=== PATIENT | female | born 1935 | race Native Hawaiian/Other Pacific Islander ===

== ENCOUNTER 2017-08-14 14:30 | Inpatient (IN) | payer OTHER, MEDICARE ==
[2017-08-14 14:30] VITALS: BMI 21.4
[2017-08-14] MEDS ORDERED: Sodium Chloride 0.9% 1,000 ML IV STA (14:58)
[2017-08-14 16:05] LABS: ALB/GLOB RATIO 0.9 (1.0-2.1); ALBUMIN 3.7 g/dL (3.5-5.0); ALT/SGPT 21 U/L (9-52); AST/SGOT 25 U/L (14-36); BLOOD UREA NITROGEN 11 mg/dl (7-17); CALCIUM 8.9 mg/dL (8.4-10.2); GFR AFRICAN-AMERICAN > 60; GFR NON-AFRICAN AMERICAN > 60; MAGNESIUM 1.9 MG/DL (1.6-2.3)
[2017-08-14 16:15] LABS: BASO % 0.6 % (0.0-2.0); EOS # 0.2 K/uL (0.0-0.7); HEMOGLOBIN 9.8 g/dL (12.0-16.0); LYMPH # 0.8 K/uL (1.0-4.3); LYMPH % 10.5 % (20.0-40.0); MEAN CELL VOLUME 81.1 fl (81.0-99.0); MEAN CORPUSCULAR HEMOGLOBIN 26.7 pg (27.0-31.0); MEAN CORPUSCULAR HGB CONC 32.9 g/dL (33.0-37.0); MEAN PLATELET VOLUME 7.9 fl (7.2-11.7); MONO # 1.1 K/uL (0.0-0.8); NEUT # 5.6 K/uL (1.8-7.0); NEUT % 72.9 % (50.0-75.0); NRBC % 0.2 % (0.0-0.0); RBC 3.65 Mil/uL (3.80-5.20); RED CELL DISTRIBUTION WIDTH 15.3 % (11.5-14.5); WHITE BLOOD COUNT 7.6 K/uL (4.8-10.8)
[2017-08-14] MEDS ORDERED: Potassium Chloride 20 mEq ER Tab PO ONE ×4 (16:32→22:25)
--- NOTE | 2017-08-14 16:44 | ED PDOC ---
HPI: Seizure Time Seen by Provider: 08/14/17 14:40 Chief Complaint (Nursing): Seizure Chief Complaint (Provider): seizure History Per: Patient, Family, Other (Dr Richardson) Recent Seizure Activity Began: Just Before Arrival Number Of Seizures: One Quality Of Seizure: Generalized Post-ictal Period: Yes Severity: Severe Additional History Per: Prior Records Additional Complaint(s): 82yo female arrives via EMS from Dr Richardson's office where she reportedly had a seizure in the waiting area. Dr Richardson confirms witnessed generalized tonic clonic seizure with prolonged post ictal period. Per elementary ell teacher also had a seizure last week, although both patient and elementary ell teacher are poor historians. Reportedly has been having worsening tremors lately, no reported falls, illness/fever, vomiting or diarrhea. 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 In ED she is awake, appears mildly confused and denies complaints. Past Medical History Reviewed: Historical Data, Nursing Documentation, Vital Signs Vital Signs: Last Vital Signs Temp 99.0 F 08/14/17 14:34 Pulse 71 08/14/17 14:34 Resp 16 08/14/17 14:34 BP 150/61 08/14/17 14:34 Pulse Ox 99 08/14/17 14:34 - Medical History PMH: Asthma, Dementia, Parkinson's Disease - Surgical History Surgical History: Appendectomy - Family History Family History: States: Unknown Family Hx - Living Arrangements Living Arrangements: With Family - Social History Current smoker - smoking cessation education provided: No Alcohol: None - Immunization History Hx Tetanus Toxoid Vaccination: No Hx Influenza Vaccination: No Hx Pneumococcal Vaccination: No - Home Medications Home Medications: Ambulatory Orders Medication Instructions Recorded Carbidopa/Levodopa 25/100 mg 1 tab PO DAILY 03/01/16 [Sinemet] Donepezil [Aricept] 10 mg PO BID 03/01/16 Pramipexole Di-HCl [Mirapex ER] 0.375 mg PO DAILY 03/01/16 Pramipexole Di-HCl [Pramipexole 0.25 mg PO BID 03/01/16 Dihydrochloride] QUEtiapine [Seroquel] 25 mg PO HS 03/01/16 Potassium Chloride [K-Dur 20 mEq 20 meq PO DAILY #10 tab 07/21/17 ER Tab] traMADol/Acetaminophen [Ultracet 1 tab PO Q4 PRN #30 tab 07/21/17 325 MG-37.5 MG] - Allergies Allergies/Adverse Reactions: Allergies Allergy/AdvReac Type Severity Reaction Status Date / Time No Known Allergies Allergy Verified 07/21/17 12:08 Review of Systems Review Of Systems: ROS cannot be obtained secondary to pt's inabilty to answer questions. (poor historian) Constitutional: Positive for: Chills Respiratory: Negative for: Cough Gastrointestinal: Negative for: Vomiting Neurological: Positive for: Seizures, Altered Mental Status Physical Exam - Reviewed Nursing Documentation Reviewed: Yes Vital Signs Reviewed: Yes - Physical Exam Appears: Positive for: Non-toxic (elderly appearing, communicates simply, frail , parkinsonian) Head Exam: Positive for: ATRAUMATIC, NORMAL INSPECTION, NORMOCEPHALIC Skin: Positive for: Normal Color, Warm, DRY Eye Exam: Positive for: EOMI, Normal appearance, PERRL ENT: Positive for: Other (dry appearing mucosa). Negative for: Tonsillar Exudate Neck: Positive for: Normal, Painless ROM Cardiovascular/Chest: Positive for: Regular Rate, Rhythm Respiratory: Positive for: Normal Breath Sounds. Negative for: Respiratory Distress Gastrointestinal/Abdominal: Positive for: Bowel Sounds, Soft. Negative for: Tenderness Back: Positive for: Normal Inspection Extremity: Positive for: Normal ROM, Pedal Edema, Other (cool extremities) Neurologic/Psych: Positive for: Alert, floater operator II-XII (intact), Other (intention tremor, rigidity, parkinsonian, strength symmetric) - Laboratory Results Result Diagrams: 08/14/17 15:48 08/14/17 15:48 - ECG ECG: Positive for: Interpreted By Me ECG Rhythm: Positive for: Sinus Rhythm, ST/T Changes, Nonspecific Changes Rate: 75 O2 Sat by Pulse Oximetry: 99 Pulse Ox Interpretation: Normal - Radiology X-Ray: Interpreted by Ak X-Ray Interpretation: No Acute Disease Medical Decision Making Medical Decision Making: workup for ? new onset seizure initiated CT brain, EKG, labs, accucheck, cardiac monitoring
[2017-08-14] MEDS ORDERED: levETIRAcetam 500 MG in Sodium Chloride 0.9% 100 ML IVPB ONE (16:51)
[2017-08-14 17:03] LABS: SQUAMOUS EPITHIAL 1 /hpf (0-5); URINE AMORPHOUS SEDIMENT RARE /ul (<OCC); URINE BACTERIA RARE (<OCC); URINE BILIRUBIN NEGATIVE (NEGATIVE); URINE BLOOD SMALL (NEGATIVE); URINE CLARITY CLOUDY (Clear); URINE COLOR AMBER (YELLOW); URINE GLUCOSE (UA) NEG (Normal); URINE HYALINE CAST 0-2 /hpf (0-2); URINE LEUKOCYTE ESTERASE NEG Leu/uL (Negative); URINE NITRATE NEGATIVE (NEGATIVE); URINE PROTEIN 30 mg/dL (NEGATIVE)
--- NOTE | 2017-08-14 17:03 | CT ---
PROCEDURE: CT HEAD WITHOUT CONTRAST. HISTORY: r/o ICH COMPARISON: None available. TECHNIQUE: Axial computed tomography images were obtained through the head/brain without intravenous contrast. Radiation dose: Total exam DLP = 1877.87 mGy-cm. This CT exam was performed using one or more of the following dose reduction techniques: Automated exposure control, adjustment of the mA and/or kV according to patient size, and/or use of iterative reconstruction technique. FINDINGS: HEMORRHAGE: No intracranial hemorrhage. BRAIN: Examination limited due to motion artifact. No intracranial mass. No evidence of acute infarct. Mild to moderate diffuse age-appropriate cerebral atrophy. Mild periventricular white matter lucency consistent with chronic microvascular ischemic change. VENTRICLES: Unremarkable. No hydrocephalus. CALVARIUM: Unremarkable. PARANASAL SINUSES: Unremarkable as visualized. No significant inflammatory changes. MASTOID AIR CELLS: Unremarkable as visualized. No inflammatory changes. OTHER FINDINGS: None. IMPRESSION: Age-appropriate involutional change. No evidence of intracranial hemorrhage.
--- NOTE | 2017-08-14 22:06 | RAD ---
EXAM: XR Right Knee, 1 or 2 views CLINICAL HISTORY: 82 years old, female; Injury or trauma; Fall; Initial encounter; Blunt trauma; Knee; Right TECHNIQUE: Frontal and/or lateral views of the right knee. COMPARISON: No relevant prior studies available. FINDINGS: Bones/joints: No acute fracture. No dislocation. No significant joint effusion. Soft tissues: Unremarkable. IMPRESSION: 1. No fracture. 2. If pain persists, suggest MRI to evaluate for occult fracture/internal arrangement.
--- NOTE | 2017-08-14 22:06 | RAD ---
EXAM: XR Pelvis, 1 or 2 Views CLINICAL HISTORY: 82 years old, female; Injury or trauma; Fall; Initial encounter; Blunt trauma (contusions or hematomas); Right; Hip TECHNIQUE: Frontal view of the pelvis. COMPARISON: No relevant prior studies available. FINDINGS: Limitations: Suboptimal evaluation of right femoral neck due to external rotation of hip. Bones/joints: No acute fracture. Degenerative changes of lower lumbar spine. No dislocation. Osteopenia. Soft tissues: Unremarkable. Other findings: Ovoid calcification projected over right hemipelvis. IMPRESSION: 1. No fracture. 2. If hip pain persists, consider MRI to exclude occult fracture/internal derangement. 3. Incidental/non-acute findings are described above.
[2017-08-14] MEDS: Dextrose 5%/Lactated Ringer's 1,000 ML IV SCH (23:54)
[2017-08-15 07:43] LABS: HEMOGLOBIN 9.7 g/dL (12.0-16.0); MEAN CELL VOLUME 82.9 fl (81.0-99.0); MEAN CORPUSCULAR HEMOGLOBIN 26.6 pg (27.0-31.0); MEAN CORPUSCULAR HGB CONC 32.2 g/dL (33.0-37.0); RBC 3.64 Mil/uL (3.80-5.20); RED CELL DISTRIBUTION WIDTH 16.1 % (11.5-14.5); WHITE BLOOD COUNT 5.8 K/uL (4.8-10.8)
[2017-08-15 08:05] LABS: ALB/GLOB RATIO 0.9 (1.0-2.1); ALBUMIN 3.3 g/dL (3.5-5.0); ALT/SGPT 25 U/L (9-52); AST/SGOT 23 U/L (14-36); BLOOD UREA NITROGEN 7 mg/dl (7-17); CALCIUM 8.6 mg/dL (8.4-10.2); GFR AFRICAN-AMERICAN > 60; GFR NON-AFRICAN AMERICAN > 60
[2017-08-15] MEDS: Dextrose 5%/Lactated Ringer's 1,000 ML IV SCH ×2 (08:36→19:45)
--- NOTE | 2017-08-15 08:49 | RAD ---
HISTORY: AMS COMPARISON: No prior. FINDINGS: LUNGS: No acute infiltrate is appreciated bilaterally. Left apical fibrosis is identified with none at the right. Skin folds are identified at inferior right lung zone laterally. PLEURA: No significant pleural effusion identified, no pneumothorax apparent. CARDIOVASCULAR: Normal. OSSEOUS STRUCTURES: No significant abnormalities. VISUALIZED UPPER ABDOMEN: Normal. OTHER FINDINGS: None. IMPRESSION: No acute infiltrate or pleural effusion bilaterally. No pulmonary vascular derangement. Left apical fibrosis.
[2017-08-15] MEDS ORDERED: Pneumococcal 23-Valent Vaccine IM ONE (09:00)
[2017-08-15] MEDS ORDERED: Influenza Vaccine 18yr & older 0.5 ML/45 MCG SYR IM ONE (09:50)
--- NOTE | 2017-08-15 17:46 | CP.PCM.CON ---
History of Present Illness - History of Present Illness History of Present Illness: Mrs. Watson is an 82-year-old woman with a past medical history of Parkinsons and dementia, who has had several episodes of witnessed seizures in the past according to family. The most recent one was yesterday. She was started on Keppra and has been somewhat lethargic, but has not had any seizures since. Review of Systems - Review of Systems All systems: reviewed and no additional remarkable complaints except Past Patient History - Past Medical History & Family History Past Medical History?: Yes - Past Social History Smoking Status: Never Smoked - CARDIAC Hx Cardiac Disorders: Yes Hx Angina: Yes - PULMONARY Hx Asthma: Yes - NEUROLOGICAL Hx Dementia: Yes Hx Parkinson's Disease: Yes - MUSCULOSKELETAL/RHEUMATOLOGICAL Hx Falls: Yes - PSYCHIATRIC Hx Substance Use: No - SURGICAL HISTORY Hx Appendectomy: Yes - ANESTHESIA Hx Anesthesia: Yes Hx Anesthesia Reactions: No Meds Allergies/Adverse Reactions: Allergies Allergy/AdvReac Type Severity Reaction Status Date / Time No Known Allergies Allergy Verified 07/21/17 12:08 - Medications Medications: Current Medications Carbidopa/Levodopa (Sinemet) 3 tab PO TID [facility] Last Admin: 08/15/17 16:07 Dose: 3 tab Donepezil HCl (Aricept) 10 mg PO [facility] Last Admin: 08/15/17 01:07 Dose: Not Given Dextrose/Lactated Ringer's (Dextrose 5%/Lactated Ringer's) 1,000 mls @ 100 mls/ hr IV .Q10H [facility] Stop: 08/15/17 23:23 Last Admin: 08/15/17 08:36 Dose: 100 mls/hr Levetiracetam (Keppra) 500 mg PO BID [facility] Last Admin: 08/15/17 16:07 Dose: 500 mg Lorazepam (Ativan) 1 mg IVP QID PRN PRN Reason: Seizure activity Pramipexole Dihydrochloride (Mirapex) 0.25 mg PO BID [facility] Last Admin: 08/15/17 16:07 Dose: 0.25 mg Quetiapine Fumarate (Seroquel) 50 mg PO [facility] Last Admin: 08/15/17 01:07 Dose: Not Given Physical Exam - Constitutional Appears: Well - Head Exam Head Exam: ATRAUMATIC, NORMAL INSPECTION, NORMOCEPHALIC - Eye Exam Eye Exam: EOMI, Normal appearance, PERRL - Cardiovascular Exam Cardiovascular Exam: REGULAR RHYTHM, +S1, +S2 - Rectal Exam Rectal Exam: Deferred - Neurological Exam Neurological exam: Abnormal Gait, Altered, CN II-XII Intact Additional comments: Oriented to person and place only. Does not know year or who the president of the [employer] is. She has generalized bradykinesia and bradyphrenia. Moves all extremities, non-focal, sensation is intact, reflexes are normal, plantar responses are downgoing. Results - Vital Signs Recent Vital Signs: Last Vital Signs Temp 98.2 F 08/15/17 16:15 Pulse 68 08/15/17 16:15 Resp 16 08/15/17 16:15 BP 126/66 08/15/17 16:15 Pulse Ox 99 08/15/17 16:15 - Labs Result Diagrams: 08/15/17 05:55 08/15/17 05:55 Labs: Laboratory Results - last 24 hr 08/15/17 08/15/17 05:55 05:55 WBC 5.8 RBC 3.64 L Hgb 9.7 L Hct 30.1 L MCV 82.9 MCH 26.6 L MCHC 32.2 L RDW 16.1 H Plt Count 248 Sodium 140 Potassium 3.1 L Chloride 98 Carbon Dioxide 34 H Anion Gap 11 BUN 7 Creatinine 0.5 L Est GFR ( Amer) > 60 Est GFR (Non-Af Amer) > 60 Random Glucose 96 Calcium 8.6 Total Bilirubin 1.3 AST 23 ALT 25 Alkaline Phosphatase 215 H Total Protein 7.2 Albumin 3.3 L Globulin 3.9 Albumin/Globulin Ratio 0.9 L TSH 3rd Generation 1.61 Assessment & Plan (1) Epilepsy Assessment and Plan: She has had multiple seizures by history. This may be due to Seroquel or other medications lowering the seizure threshold, or may be due to underlying cerebral /cortical pathology due to dementia/PD. I recommend the following. 1. MRI of the brain without contrast 2. EEG awake and drowsy for 1 hour 3. Continue Keppra 500 mg BID 4. PT/OT eval 5. Continue home meds Thank you. Status: Acute Priority: High
--- NOTE | 2017-08-15 18:29 | CP.PCM.HP ---
History of Present Illness - History of Present Illness History of Present Illness: This is an 82 y/o female admitted for generalized tonic clonic seizure which happened while in the waiting room in my office. She apparently had previous witnessed seizure in the past according to . She has a hx of dementia and Parkinsons. She used to follow up with another MD in [facility]. No other significant medical issues. Present on Admission - Present on Admission Any Indicators Present on Admission: No History of DVT/PE: No History of Uncontrolled Diabetes: No Urinary Catheter: No Decubitus Ulcer Present: No Review of Systems - Neurological Neurological: Confusion, Convulsions Past Patient History - Past Medical History & Family History Past Medical History?: Yes - Past Social History Smoking Status: Never Smoked - CARDIAC Hx Cardiac Disorders: Yes Hx Angina: Yes - PULMONARY Hx Asthma: Yes - NEUROLOGICAL Hx Dementia: Yes Hx Parkinson's Disease: Yes - MUSCULOSKELETAL/RHEUMATOLOGICAL Hx Falls: Yes - PSYCHIATRIC Hx Substance Use: No - SURGICAL HISTORY Hx Appendectomy: Yes - ANESTHESIA Hx Anesthesia: Yes Hx Anesthesia Reactions: No Meds Allergies/Adverse Reactions: Allergies Allergy/AdvReac Type Severity Reaction Status Date / Time No Known Allergies Allergy Verified 07/21/17 12:08 Physical Exam - Head Exam Head Exam: NORMAL INSPECTION - Eye Exam Eye Exam: Normal appearance - Respiratory Exam Respiratory Exam: Clear to Auscultation Bilateral - Cardiovascular Exam Cardiovascular Exam: REGULAR RHYTHM - GI/Abdominal Exam GI & Abdominal Exam: Normal Bowel Sounds - Neurological Exam Neurological exam: Altered, CN II-XII Intact - Psychiatric Exam Psychiatric exam: Flat Affect Results - Vital Signs Recent Vital Signs: Last Vital Signs Temp 98.2 F 08/15/17 16:15 Pulse 68 08/15/17 16:15 Resp 16 08/15/17 16:15 BP 126/66 08/15/17 16:15 Pulse Ox 99 08/15/17 16:15 - Labs Result Diagrams: 08/15/17 05:55 08/15/17 05:55 Labs: Laboratory Results - last 24 hr 08/15/17 08/15/17 05:55 05:55 WBC 5.8 RBC 3.64 L Hgb 9.7 L Hct 30.1 L MCV 82.9 MCH 26.6 L MCHC 32.2 L RDW 16.1 H Plt Count 248 Sodium 140 Potassium 3.1 L Chloride 98 Carbon Dioxide 34 H Anion Gap 11 BUN 7 Creatinine 0.5 L Est GFR ( Amer) > 60 Est GFR (Non-Af Amer) > 60 Random Glucose 96 Calcium 8.6 Total Bilirubin 1.3 AST 23 ALT 25 Alkaline Phosphatase 215 H Total Protein 7.2 Albumin 3.3 L Globulin 3.9 Albumin/Globulin Ratio 0.9 L TSH 3rd Generation 1.61 Assessment & Plan (1) Seizure disorder Status: Acute (2) Dementia Status: Acute (3) Parkinson disease Status: Acute - Assessment and Plan (Free Text) Plan: admit to telemetry Neuro eval ativan resume home meds oxygen MRI of the brain karel Yo
--- NOTE | 2017-08-15 19:36 | CARD ---
APPROVED REPORT EKG Measurement Heart [id number] <Conclusion> Normal sinus rhythm Minimal voltage criteria for LVH, may be normal variant Nonspecific ST & T wave abnormality, Abnormal ECG
[2017-08-16] MEDS ORDERED: levETIRAcetam 500 MG in Sodium Chloride 0.9% 100 ML IVPB ONE (11:21)
--- NOTE | 2017-08-16 11:21 | CP.PCM.PN ---
Subjective - Date & Time of Evaluation Date of Evaluation: 08/16/17 Time of Evaluation: 11:19 - Subjective Subjective: Ms. Watson was seen and examined at the bedside. She is alert to her immediate family only but not to the president. She is unable to state time and place. The patient's is at the bedside when the patient has a clonic tonic seizures for less than 2 minutes. She did not have any tongue biting or incontinence. The vital signs post seizure episode is 127/66. HR 112, SPO2-97% with oxygen at 2 LPM/NC. Ativan 1 mg IVP and a loading dose of keppra 500 mg IVPB for one dose was given. Objective - Vital Signs/Intake and Output Vital Signs (last 24 hours): Temp Pulse Resp BP Pulse Ox 98.7 F 89 20 126/64 97 08/16/17 08:10 08/16/17 08:10 08/16/17 08:10 08/16/17 08:10 08/16/17 08:10 - Medications Medications: Current Medications Carbidopa/Levodopa (Sinemet) 3 tab PO TID [facility] Last Admin: 08/16/17 08:57 Dose: 3 tab Donepezil HCl (Aricept) 10 mg PO [facility] Last Admin: 08/15/17 21:49 Dose: 10 mg Levetiracetam (Keppra) 500 mg PO BID [facility] Last Admin: 08/16/17 08:57 Dose: 500 mg Lorazepam (Ativan) 1 mg IVP QID PRN PRN Reason: Seizure activity Pramipexole Dihydrochloride (Mirapex) 0.25 mg PO BID [facility] Last Admin: 08/16/17 08:57 Dose: 0.25 mg Quetiapine Fumarate (Seroquel) 50 mg PO [facility] Last Admin: 08/15/17 21:49 Dose: 50 mg - Labs Labs: 08/15/17 05:55 08/15/17 05:55 - Constitutional Appears: No Acute Distress, Confused - Head Exam Head Exam: NORMAL INSPECTION - Extremities Exam Additional comments: positive tenderness in her right knee (s/p fall), with ecchymosis noted in her right leg. - Neurological Exam Neurological Exam: Awake Neuro motor strength exam: Left Upper Extremity: 3, Right Upper Extremity: 3, Left Lower Extremity: 3, Right Lower Extremity: 3 Additional comments: Does not know year or who the president of the [employer] is, only knows her . She has generalized bradykinesia and bradyphrenia. Moves all extremities, non- focal, sensation is intact, reflexes are normal,prior to seizure activity Assessment and Plan (1) Epilepsy Assessment & Plan: Case discussed with Dr. Tejada, ativan 1 mg IVP for one dose and additional keppra 500 mg IVPB for one dose. Follow up MRI of the brain and EEG. Continue all other medical regimen including seizure precautions. Status: Acute
--- NOTE | 2017-08-16 14:10 | CP.PCM.PN ---
Subjective - Date & Time of Evaluation Date of Evaluation: 08/16/17 Time of Evaluation: 14:09 - Subjective Subjective: Patient had a short episode of seizure today Was given iV Keppra Has no chest pain or SOB Objective - Vital Signs/Intake and Output Vital Signs (last 24 hours): Temp Pulse Resp BP Pulse Ox 98.0 F 90 20 127/66 100 08/16/17 13:02 08/16/17 13:02 08/16/17 13:02 08/16/17 13:02 08/16/17 13:02 - Medications Medications: Current Medications Carbidopa/Levodopa (Sinemet) 3 tab PO TID [facility] Last Admin: 08/16/17 12:44 Dose: 3 tab Donepezil HCl (Aricept) 10 mg PO [facility] Last Admin: 08/15/17 21:49 Dose: 10 mg Levetiracetam (Keppra) 500 mg PO BID [facility] Last Admin: 08/16/17 08:57 Dose: 500 mg Lorazepam (Ativan) 1 mg IVP QID PRN PRN Reason: Seizure activity Pramipexole Dihydrochloride (Mirapex) 0.25 mg PO BID [facility] Last Admin: 08/16/17 08:57 Dose: 0.25 mg Quetiapine Fumarate (Seroquel) 50 mg PO [facility] Last Admin: 08/15/17 21:49 Dose: 50 mg - Labs Labs: 08/15/17 05:55 08/15/17 05:55 - Head Exam Head Exam: NORMAL INSPECTION - Eye Exam Eye Exam: Normal appearance - ENT Exam ENT Exam: Mucous Membranes Moist - Respiratory Exam Respiratory Exam: NORMAL BREATHING PATTERN - Cardiovascular Exam Cardiovascular Exam: REGULAR RHYTHM - GI/Abdominal Exam GI & Abdominal Exam: Normal Bowel Sounds - Neurological Exam Neurological Exam: Awake, Oriented x3 - Psychiatric Exam Psychiatric exam: Normal Mood Assessment and Plan (1) Seizure disorder Status: Acute (2) Dementia Status: Acute (3) Parkinson disease Status: Acute - Assessment and Plan (Free Text) Plan: Continue meds Cont tx Cont PT cont Keppra PT in am discharge plan after PT.
[2017-08-16] MEDS ORDERED: Lidocaine 5% Patch TD SCH (14:15)
--- NOTE | 2017-08-17 11:14 | CP.PCM.PN ---
Subjective - Date & Time of Evaluation Date of Evaluation: 08/17/17 Time of Evaluation: 11:11 - Subjective Subjective: Ms. Watson was seen and examined at the bedside. She is alert with episode of forgetfulness. She is able to answer some questions appropriately. She denies any headache, dizziness, lightheadedness, blurred vision. She is able to follow simple commands such as lifting her bilateral upper and lower extremities. There was no untoward events overnight. Objective - Vital Signs/Intake and Output Vital Signs (last 24 hours): Temp Pulse Resp BP Pulse Ox 98.4 F 75 18 137/72 100 08/17/17 08:16 08/17/17 08:16 08/17/17 08:16 08/17/17 08:16 08/17/17 08:16 - Medications Medications: Current Medications Carbidopa/Levodopa (Sinemet) 3 tab PO TID [facility] Last Admin: 08/16/17 17:19 Dose: 3 tab Donepezil HCl (Aricept) 10 mg PO [facility] Last Admin: 08/16/17 21:40 Dose: 10 mg Levetiracetam (Keppra) 500 mg PO BID [facility] Last Admin: 08/16/17 17:20 Dose: 500 mg Lidocaine (Lidoderm) 1 ea TD DAILY [facility] Lorazepam (Ativan) 1 mg IVP QID PRN PRN Reason: Seizure activity Megestrol Acetate (Megace) 20 mg PO DAILY [facility] Pramipexole Dihydrochloride (Mirapex) 0.25 mg PO BID [facility] Last Admin: 08/16/17 17:20 Dose: 0.25 mg Quetiapine Fumarate (Seroquel) 50 mg PO [facility] Last Admin: 08/16/17 21:40 Dose: 50 mg - Labs Labs: 08/15/17 05:55 08/15/17 05:55 - Constitutional Appears: No Acute Distress - Head Exam Head Exam: NORMAL INSPECTION - Neurological Exam Neurological Exam: Alert, Awake Neuro motor strength exam: Left Upper Extremity: 4, Right Upper Extremity: 4, Left Lower Extremity: 4, Right Lower Extremity: 4 Additional comments: She is able to answer questions approriately and follow simple commands. Sensation remains intact. Assessment and Plan (1) Epilepsy Assessment & Plan: Case discussed with Dr. Mehta, continue all current medical regimen including AED' s. Pending MRI of the brain and EEG to further evaluate the seizure. Status: Acute
[2017-08-17] MEDS: Lidocaine 5% Patch TD SCH (12:56)
[2017-08-17 12:58] LABS: BLOOD UREA NITROGEN 4 mg/dl (7-17); CALCIUM 8.4 mg/dL (8.4-10.2); GFR AFRICAN-AMERICAN > 60; GFR NON-AFRICAN AMERICAN > 60
[2017-08-17] MEDS ORDERED: Potassium Chloride 20 mEq/15 ml LIQ UD PO ONE (13:29)
[2017-08-18 06:09] LABS: HEMOGLOBIN 8.3 g/dL (12.0-16.0); MEAN CELL VOLUME 81.6 fl (81.0-99.0); MEAN CORPUSCULAR HEMOGLOBIN 26.8 pg (27.0-31.0); MEAN CORPUSCULAR HGB CONC 32.8 g/dL (33.0-37.0); RBC 3.09 Mil/uL (3.80-5.20); WHITE BLOOD COUNT 7.5 K/uL (4.8-10.8)
[2017-08-18 06:15] LABS: BLOOD UREA NITROGEN 6 mg/dl (7-17); CALCIUM 8.4 mg/dL (8.4-10.2); GFR AFRICAN-AMERICAN > 60; GFR NON-AFRICAN AMERICAN > 60
[2017-08-18] MEDS: Lidocaine 5% Patch TD SCH (08:56)
[2017-08-18] MEDS: Potassium Chloride 20 mEq/15 ml LIQ UD PO SCH (09:14)
[2017-08-18] MEDS ORDERED: Potassium Chloride 20 mEq ER Tab PO ONE (09:57)
[2017-08-18 14:37] LABS: IRON 42 ug/dL (37-170)
[2017-08-18 14:47] LABS: TOTAL IRON BINDING CAPACITY 204 ug/dL (250-450)
[2017-08-18 15:04] LABS: % IRON SATURATION 21 % (20-55)
--- NOTE | 2017-08-18 16:00 | CP.PCM.PN ---
Subjective - Date & Time of Evaluation Date of Evaluation: 08/18/17 Time of Evaluation: 15:57 - Subjective Subjective: has no complaints today. No headache, no seizures, no other complaints. EEG completed and normal. Report dictated and pending. Awaiting MRi Brain today. On exam: neurological exam unchanged. Objective - Vital Signs/Intake and Output Vital Signs (last 24 hours): Temp Pulse Resp BP Pulse Ox 97.7 F 68 20 124/94 H 100 08/18/17 12:00 08/18/17 12:00 08/18/17 12:00 08/18/17 12:00 08/18/17 12:00 - Medications Medications: Current Medications Carbidopa/Levodopa (Sinemet) 3 tab PO TID [facility] Last Admin: 08/18/17 14:14 Dose: 3 tab Donepezil HCl (Aricept) 10 mg PO HS [facility] Last Admin: 08/17/17 22:17 Dose: 10 mg Levetiracetam (Keppra) 500 mg PO BID [facility] Last Admin: 08/18/17 08:59 Dose: 500 mg Lidocaine (Lidoderm) 1 ea TD DAILY [facility] Last Admin: 08/18/17 08:56 Dose: 1 ea Lorazepam (Ativan) 1 mg IVP QID PRN PRN Reason: Seizure activity Megestrol Acetate (Megace) 20 mg PO DAILY [facility] Last Admin: 08/18/17 08:59 Dose: 20 mg Potassium Chloride (Potassium Chloride Oral Soln) 20 meq PO DAILY [facility] Last Admin: 08/18/17 09:14 Dose: 20 meq Pramipexole Dihydrochloride (Mirapex) 0.25 mg PO BID [facility] Last Admin: 08/18/17 09:01 Dose: 0.25 mg Quetiapine Fumarate (Seroquel) 50 mg PO [facility] Last Admin: 08/17/17 22:17 Dose: 50 mg - Labs Labs: 08/18/17 04:25 08/18/17 04:25 Assessment and Plan - Assessment and Plan (Free Text) Assessment: 82 yr old male with new onset seizure, etiology as of yet undefined. Neuroimaging pending and on keppra. Tolerating well. Plan: 1. Continue keppra 500 mg bid 2. MRI Brain pending.
--- NOTE | 2017-08-18 16:19 | CP.PCM.PN ---
Subjective - Date & Time of Evaluation Date of Evaluation: 08/18/17 Time of Evaluation: 09:45 - Subjective Subjective: Patient seen and examined at bedside with attending-Dr. Richardson. Awake, in no acute distress. Minimal verbal response to questions as is her baseline. Objective - Vital Signs/Intake and Output Vital Signs (last 24 hours): Temp Pulse Resp BP Pulse Ox 97.7 F 68 20 124/94 H 100 08/18/17 12:00 08/18/17 12:00 08/18/17 12:00 08/18/17 12:00 08/18/17 12:00 - Medications Medications: Current Medications Carbidopa/Levodopa (Sinemet) 3 tab PO TID [facility] Last Admin: 08/18/17 14:14 Dose: 3 tab Donepezil HCl (Aricept) 10 mg PO [facility] Last Admin: 08/17/17 22:17 Dose: 10 mg Levetiracetam (Keppra) 500 mg PO BID [facility] Last Admin: 08/18/17 08:59 Dose: 500 mg Lidocaine (Lidoderm) 1 ea TD DAILY [facility] Last Admin: 08/18/17 08:56 Dose: 1 ea Lorazepam (Ativan) 1 mg IVP QID PRN PRN Reason: Seizure activity Megestrol Acetate (Megace) 20 mg PO DAILY [facility] Last Admin: 08/18/17 08:59 Dose: 20 mg Potassium Chloride (Potassium Chloride Oral Soln) 20 meq PO DAILY [facility] Last Admin: 08/18/17 09:14 Dose: 20 meq Pramipexole Dihydrochloride (Mirapex) 0.25 mg PO BID [facility] Last Admin: 08/18/17 09:01 Dose: 0.25 mg Quetiapine Fumarate (Seroquel) 50 mg PO [facility] Last Admin: 08/17/17 22:17 Dose: 50 mg - Labs Labs: 08/18/17 04:25 08/18/17 04:25 - Constitutional Appears: No Acute Distress - Head Exam Head Exam: ATRAUMATIC, NORMOCEPHALIC - Eye Exam Eye Exam: EOMI - ENT Exam ENT Exam: Mucous Membranes Moist - Neck Exam Neck Exam: absent: Lymphadenopathy - Respiratory Exam Respiratory Exam: Clear to Ausculation Bilateral, NORMAL BREATHING PATTERN - Cardiovascular Exam Cardiovascular Exam: REGULAR RHYTHM, +S1, +S2 - GI/Abdominal Exam GI & Abdominal Exam: Soft, Normal Bowel Sounds - Extremities Exam Extremities Exam: absent: Calf Tenderness, Pedal Edema - Neurological Exam Neurological Exam: Awake - Psychiatric Exam Psychiatric exam: Flat Affect (/) - Skin Skin Exam: Dry, Normal Color, Warm Assessment and Plan - Assessment and Plan (Free Text) Assessment: 82 yr old admitted for for new onset seizure. Patient awaiting Brain MRI. -Ativan 1mg PO 30 min prior to MRI -f/u MRI Brain -continue present management -Keppra 500mg PO BID -Neurology on consult, will follow recommendations
[2017-08-18 20:22] VITALS: RESP 18
[2017-08-19] MEDS: Lidocaine 5% Patch TD SCH (09:05)
[2017-08-19] MEDS: Potassium Chloride 20 mEq/15 ml LIQ UD PO SCH (09:13)
--- NOTE | 2017-08-19 11:35 | CP.PCM.PN ---
Subjective - Date & Time of Evaluation Date of Evaluation: 08/19/17 Time of Evaluation: 11:34 - Subjective Subjective: Ms. Watson was seen and examined at the bedside. She is alert, with episode of confusion but can be redirected accordingly. She is able to answer few questions and follow simple commands. Her is requesting to be discharge today. MRI and EEG reviewed by Dr. Mehta which showed no acute findings and seizure activity. There was no untoward events overnight. Objective - Vital Signs/Intake and Output Vital Signs (last 24 hours): Temp Pulse Resp BP Pulse Ox 98.5 F 83 18 129/67 99 08/19/17 08:08 08/19/17 08:08 08/19/17 08:08 08/19/17 08:08 08/19/17 08:08 - Medications Medications: Current Medications Carbidopa/Levodopa (Sinemet) 3 tab PO TID [facility] Last Admin: 08/19/17 09:04 Dose: 3 tab Donepezil HCl (Aricept) 10 mg PO [facility] Last Admin: 08/18/17 21:26 Dose: 10 mg Levetiracetam (Keppra) 500 mg PO BID [facility] Last Admin: 08/19/17 09:05 Dose: 500 mg Lidocaine (Lidoderm) 1 ea TD DAILY [facility] Last Admin: 08/19/17 09:05 Dose: 1 ea Lorazepam (Ativan) 1 mg IVP QID PRN PRN Reason: Seizure activity Megestrol Acetate (Megace) 20 mg PO DAILY [facility] Last Admin: 08/19/17 09:05 Dose: 20 mg Potassium Chloride (Potassium Chloride Oral Soln) 20 meq PO DAILY [facility] Last Admin: 08/19/17 09:13 Dose: 20 meq Pramipexole Dihydrochloride (Mirapex) 0.25 mg PO BID [facility] Last Admin: 08/19/17 09:09 Dose: 0.25 mg Quetiapine Fumarate (Seroquel) 50 mg PO [facility] Last Admin: 08/18/17 21:26 Dose: 50 mg - Labs Labs: 08/18/17 04:25 08/18/17 04:25 - Constitutional Appears: No Acute Distress - Head Exam Head Exam: NORMAL INSPECTION - Neurological Exam Neurological Exam: Awake Neuro motor strength exam: Left Upper Extremity: 5, Right Upper Extremity: 5, Left Lower Extremity: 5, Right Lower Extremity: 5 Additional comments: She is able to follow simple commands. Sensation remains intact. Assessment and Plan (1) Epilepsy Assessment & Plan: Case discussed with Dr. Mehta, continue all current medical regimen including AED. May discharge to home with home physical therapy. Recommend to follow up with Dr. Mehta in 2 weeks at [address] [facility] [address]. [place] [phone]. Status: Acute
[2017-08-19 12:30] VITALS: BP 92/54; PULSE 79; TEMP 97.2; O2SAT 97
[2017-08-19 13:15] LABS: HEMOGLOBIN 8.2 g/dL (12.0-16.0); MEAN CELL VOLUME 81.2 fl (81.0-99.0); MEAN CORPUSCULAR HEMOGLOBIN 26.6 pg (27.0-31.0); MEAN CORPUSCULAR HGB CONC 32.7 g/dL (33.0-37.0); RBC 3.08 Mil/uL (3.80-5.20); RED CELL DISTRIBUTION WIDTH 16.2 % (11.5-14.5)
--- NOTE | 2017-08-19 16:05 | CP.PCM.DIS ---
Provider - Provider Date of Admission: 08/14/17 16:32 Attending physician: Modesto Richardson MD Consults: Dr. Tejada-neurology, Dr. Mehta- neurosurgery Time Spent in preparation of Discharge (in minutes): 30 Diagnosis - Discharge Diagnosis (1) Seizure disorder Status: Acute Priority: Low Hospital Course - Lab Results Lab Results: Most Recent Lab Values WBC 7.0 K/uL (4.8-10.8) 08/19/17 12:40 RBC 3.08 Mil/uL (3.80-5.20) L 08/19/17 12:40 Hgb 8.2 g/dL (12.0-16.0) L 08/19/17 12:40 Hct 25.0 % (34.0-47.0) L 08/19/17 12:40 MCV 81.2 fl (81.0-99.0) 08/19/17 12:40 MCH 26.6 pg (27.0-31.0) L 08/19/17 12:40 MCHC 32.7 g/dL (33.0-37.0) L 08/19/17 12:40 RDW 16.2 % (11.5-14.5) H 08/19/17 12:40 Plt Count 247 K/uL (130-400) 08/19/17 12:40 MPV 7.9 fl (7.2-11.7) 08/14/17 15:48 Neut % (Auto) 72.9 % (50.0-75.0) 08/14/17 15:48 Lymph % (Auto) 10.5 % (20.0-40.0) L 08/14/17 15:48 [place] % (Auto) 14.0 % (0.0-10.0) H 08/14/17 15:48 Eos % (Auto) 2.0 % (0.0-4.0) 08/14/17 15:48 Baso % (Auto) 0.6 % (0.0-2.0) 08/14/17 15:48 Neut # 5.6 K/uL (1.8-7.0) 08/14/17 15:48 Lymph # 0.8 K/uL (1.0-4.3) L 08/14/17 15:48 [place] # 1.1 K/uL (0.0-0.8) H 08/14/17 15:48 Eos # 0.2 K/uL (0.0-0.7) 08/14/17 15:48 Baso # 0.0 K/uL (0.0-0.2) 08/14/17 15:48 Sodium 137 mmol/l (132-148) 08/18/17 04:25 Potassium 3.4 MMOL/L (3.6-5.0) L 08/18/17 04:25 Chloride 98 mmol/L (98-107) 08/18/17 04:25 Carbon Dioxide 32 mmol/L (22-30) H 08/18/17 04:25 Anion Gap 10 (10-20) 08/18/17 04:25 BUN 6 mg/dl (7-17) L 08/18/17 04:25 Creatinine 0.5 mg/dl (0.7-1.2) L 08/18/17 04:25 Est GFR ( Amer) > 60 08/18/17 04:25 Est GFR (Non-Af Amer) > 60 08/18/17 04:25 Random Glucose 84 mg/dL (65-105) 08/18/17 04:25 Calcium 8.4 mg/dL (8.4-10.2) 08/18/17 04:25 Magnesium 1.9 MG/DL (1.6-2.3) 08/14/17 15:48 Iron 42 ug/dL (37-170) 08/18/17 14:11 TIBC 204 ug/dL (250-450) L 08/18/17 14:11 % Saturation 21 % (20-55) 08/18/17 14:11 Ferritin 299.0 ng/Ml (11.1-264.0) H 08/18/17 12:33 Total Bilirubin 1.3 mg/dl (0.2-1.3) 08/15/17 05:55 AST 23 U/L (14-36) 08/15/17 05:55 ALT 25 U/L (9-52) 08/15/17 05:55 Alkaline Phosphatase 215 U/L (38-126) H 08/15/17 05:55 Total Creatine Kinase 264 U/L (30-135) H 08/14/17 15:48 Troponin I 0.0310 ng/mL (0.00-0.120) 08/14/17 15:48 Total Protein 7.2 G/DL (6.3-8.2) 08/15/17 05:55 Albumin 3.3 g/dL (3.5-5.0) L 08/15/17 05:55 Globulin 3.9 gm/dL (2.2-3.9) 08/15/17 05:55 Albumin/Globulin Ratio 0.9 (1.0-2.1) L 08/15/17 05:55 Vitamin B12 239 pg/mL (239-931) 08/18/17 12:33 TSH 3rd Generation 1.61 mIU/ML (0.46-4.68) 08/15/17 05:55 Urine Color [place] (YELLOW) 08/14/17 16:30 Urine Clarity Cloudy (Clear) 08/14/17 16:30 Urine pH 7.0 (5.0-8.0) 08/14/17 16:30 Ur Specific [place] 1.021 (1.003-1.030) 08/14/17 16:30 Urine Protein 30 mg/dL (NEGATIVE) 08/14/17 16:30 Urine Glucose (UA) Neg mg/dL (Normal) 08/14/17 16:30 Urine Ketones Trace mg/dL (NEGATIVE) 08/14/17 16:30 Urine Blood Small (NEGATIVE) 08/14/17 16:30 Urine Nitrate Negative (NEGATIVE) 08/14/17 16:30 Urine Bilirubin Negative (NEGATIVE) 08/14/17 16:30 Urine Urobilinogen 4.0 mg/dL (0.2-1.0) H 08/14/17 16:30 Ur Leukocyte Esterase Neg [place]/uL (Negative) 08/14/17 16:30 Urine RBC (Auto) 7 /hpf (0-3) H 08/14/17 16:30 Urine Microscopic WBC 3 /hpf (0-5) 08/14/17 16:30 Ur Squamous Epith Cells 1 /hpf (0-5) 08/14/17 16:30 Amorphous Sediment Rare /ul (<OCC) H 08/14/17 16:30 Urine Bacteria Rare (<OCC) 08/14/17 16:30 Hyaline Casts 0-2 /hpf (0-2) 08/14/17 16:30 Influenza Typ A,B (EIA) Negative for flu a/b (NEGATIVE) 08/14/17 15:28 - Hospital Course Hospital Course: 82 yr old admitted for for new onset seizure. EEG and Brain MRI reviewed by neurosurgery. Patient medically stable for discharge with instructions to resume home meds and f/u with PMD within 1 week. - Date & Time of H&P Date of H&P: 08/15/17 Time of H&P: 10:25 Discharge Exam - Head Exam Head Exam: ATRAUMATIC, NORMAL INSPECTION, NORMOCEPHALIC - Eye Exam Eye Exam: EOMI - ENT Exam ENT Exam: Mucous Membranes Moist - Respiratory Exam Respiratory Exam: Clear to PA & Lateral, NORMAL BREATHING PATTERN - Cardiovascular Exam Cardiovascular Exam: REGULAR RHYTHM, +S1, +S2 - GI/Abdominal Exam GI & Abdominal Exam: Normal Bowel Sounds, Soft - Neurological Exam Neurological exam: Alert - Psychiatric Exam Psychiatric exam: Flat Affect - Skin Skin Exam: Dry, Warm Discharge Plan - Discharge Medications Prescriptions: Levetiracetam [Keppra] 500 mg PO Q12 #60 tablet - Follow Up Plan Condition: GOOD Disposition: HOME/ ROUTINE Patient education suggested?: Yes Instructions: Epilepsy (DC) Additional Instructions: f/u with PMD within 1 week. Resume home meds. Referrals: Modesto Richardson MD [Family Provider] - Clinical Quality Measures - Date & Time of Discharge Summary Date of Discharge Summary: 08/19/17 Time of Discharge Summary: 16:10
--- NOTE | 2017-08-19 16:48 | MRI ---
PROCEDURE: MRI BRAIN WITHOUT CONTRAST HISTORY: seizure COMPARISON: None. TECHNIQUE: Multiplanar, multisequence MR images of the brain were obtained without intravenous contrast enhancement. FINDINGS: HEMORRHAGE: None DWI: No evidence of an acute or early subacute infarction. BRAIN PARENCHYMA: No mass effect or edema. Periventricular and left posterior parietal deep white matter microvascular changes suggested. VENTRICLES: Unremarkable. No hydrocephalus. CRANIUM: Unremarkable. ORBITS: Grossly unremarkable. PARANASAL SINUSES/MASTOIDS: Clear VASCULAR SYSTEM: Skull base flow voids intact. OTHER FINDINGS: None. IMPRESSION: No acute or early acute infarction. No gross altered signal to suggest mass or edema. Findings consistent with periventricular and trace left posterior parietal deep white matter microvascular changes
--- NOTE | 2017-08-20 10:08 | EEG ---
DATE: TECHNICAL DESCRIPTION: Electrodes were placed, 16 in number, according to the 10/20 [employer]de System . EEG activities were digitally recorded referentially to P1/P2 or A1/A2 electrodes. Digital analysis with the use of spike detection. GENERAL DESCRIPTION: The posterior dominant rhythm was a slow 5 to 6 Hz activity that showed more prominent focal slowing over the bifrontal areas. There were no focal interictal epileptiform discharges. Normal sleep was captured, but the sleep spindles were less well-formed over the bifrontal hemispheres. There were no clinical or subclinical seizures. IMPRESSION: This is an abnormal awake and sleep EEG, with the presence of bifrontal slowing, abnormality, postictal state, but does not indicate epilepsy. Clinical correlation is required. Bia Mehta MD
== END 2017-08-19 17:00 | disposition home or self-care (01) | DRG 101 ==
LOC: H.ER 14:30 → H.ERHOLD 16:32 → H.TEL 22:39
PROVIDERS: ADMIT Family Medicine; ATTEND Family Medicine
PROC: 3E0234Z Introduction of Serum, Toxoid and Vaccine into Muscle, Percutaneous Approach (ICD-10-PCS; principal; 2017-08-15)
DX: G40.409 Other generalized epilepsy and epileptic syndromes, not intractable, without status epilepticus (principal); G20 Parkinson's disease; F02.80 Dementia in other diseases classified elsewhere, unspecified severity, without behavioral disturbance, psychotic disturbance, mood disturbance, and anxiety; J45.909 Unspecified asthma, uncomplicated; Z23 Encounter for immunization